=== PATIENT | male | born 1935 | race Caucasian/White ===

== ENCOUNTER 2016-09-30 13:00 | Inpatient (IN) | payer MEDICARE, OTHER ==
[2016-09-30] MEDS: Insulin Aspart 100 Units/ML 3 ML Pen SUBCUT SCH ×8 (11:40→22:10)
[2016-09-30] MEDS: Insulin Detemir 100 Units/ML 3 ML Pen SUBCUT SCH ×2 (11:42→21:12)
--- NOTE | 2016-09-30 15:40 | PCM.HP ---
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 PT now admitted to Swing bed for ongoing PT/OT needs. pt state that for the most part his post op went well. He did note that he had an adverse reaction to the hydrocodone and required a sitter but is tolerating the ultram well. states no cp, n/v. or sob. notes his knee pain is more intense currently s/p the trip here. pain is constant but worse iwth movement. pain meds / elevation and rest do help. pt reports urinary retention- has tobias in place- states had similar retention problem after back surgery and required tobias for 2-3 weeks. historically has constipation issues- last BM tho was yesterdy, 09/29/16 Right Knee Pain Score (Numeric/FACES): 7 - Related Data Allergies/Adverse Reactions: Allergies Allergy/AdvReac Type Severity Reaction Status Date / Time No Known Allergies Allergy Verified 02/06/14 19:17 Home Medications: Home Meds Aspirin [Adult Low Dose Aspirin EC] 81 mg PO DAILY 02/06/14 [History] Gabapentin 800 mg PO BID 02/06/14 [History] Hydrochlorothiazide 25 mg PO DAILY 02/06/14 [History] Insulin Glarg,Human.Rec.Analog [Lantus Solostar] 68 unit SUBCUT BEDTIME [History] Latanoprost [Xalatan 0.005% Ophth Soln] 1 drop EYEBOTH BEDTIME 02/06/14 [History ] Levothyroxine Sodium 112 mcg PO DAILY 02/06/14 [History] Losartan [Cozaar] 50 mg PO DAILY 02/06/14 [History] Rosuvastatin Calcium [Crestor] 10 mg PO BEDTIME 02/06/14 [History] Zolpidem [Ambien] 5 mg PO BEDTIME PRN 02/06/14 [History] Lutein/Minerals/Vit A,C & E [I-Silvana] 1 each PO DAILY 05/16/15 [History] Acetaminophen/HYDROcodone [[place] 325-5 MG] 1 tab PO Q8HR 09/29/16 [History] Insulin Lispro [Humalog] 37 unit SQ TID 09/29/16 [History] rOPINIRole [Requip] 3 mg PO BEDTIME 09/29/16 [History] Past Medical History HEENT History: Reports: Cataract Cardiovascular History: Reports: High cholesterol, Hypertension Other Cardiovascular History: Sinus inversus totalus Respiratory History: Reports: Other (see below) Other Respiratory History: Partial left lung removal 50 years ago Genitourinary History: Reports: BPH, Other (see below) Other Genitourinary History: 09/30/16 urinary retention, tobias cath present on admit Musculoskeletal History: Reports: Other (see below) Other Musculoskeletal History: spinal fusion lumbar area Endocrine/Metabolic History: Reports: Diabetes, type II, Hypothyroidism Hematologic History: Reports: Blood transfusion(s) Other Dermatologic History: ??Basal Cell Carcinoma removal within last 6 months - Past Surgical History HEENT Surgical History: Reports: Cataract surgery Cardiovascular Surgical History: Reports: None Respiratory Surgical History: Reports: Pneumonectomy Other Neurological Surgeries/Procedures: january 2014 laminectomy Musculoskeletal Surgical History: Reports: Knee replacement Other Musculoskeletal Surgeries/Procedures:: R knee replaced 09/27/16 Social & Family History - Family History Family Medical History: Noncontributory Neurological: Reports: Other (see below) (father had encephalitisj- in his early 50s) Other Family History: mother of old age at 93 - Tobacco Use Smoking Status *Q: Never Smoker Second Hand Smoke Exposure: No - Caffeine Use Caffeine Use: Reports: Coffee - Alcohol Use Days Per Week of Alcohol Use: 0 - Recreational Drug Use Recreational Drug Use: No H&P Review of Systems - Review of Systems: Review Of Systems: See Below General: Reports: weakness (surgical ) HEENT: Reports: glasses Pulmonary: Reports: No Symptoms Cardiovascular: Reports: no symptoms Gastrointestinal: Reports: Constipation Genitourinary: Reports: retention (has tobias ) Musculoskeletal: Reports: leg pain (surgical - rght lg/knee ) Skin: Reports: no symptoms Psychiatric: Reports: confusion (was confused with hydrocondone ) Neurological: Reports: No Symptoms Exam - Exam Exam: See Below - Vital Signs Weight: 103.873 kg - Exam General: alert, oriented, cooperative HEENT: Conjunctiva clear Lungs: Clear to auscultation, Normal respiratory effort Cardiovascular: regular rate, regular rhythm Abdomen: normal bowel sounds, soft Extremities: edema (trace- PETAR hose in place ) Skin: warm Neuro Extensive - Mental Status: alert, oriented x3, normal mood/affect, normal cognition Psychiatric: alert, normal affect, normal mood - Patient Data Lab Results last 24 hrs: 09/29/16 - hgb 11.4 and creatinine 0.9 - from [place] d/c papers *Q Meaningful Use (ADM) - VTE *Q VTE Criteria *Q: - Stroke *Q Stroke Criteria *Q: - AMI *Q AMI Criteria *Q: - Problem List (1) Knee joint replacement status SNOMED Code(s): 1470863739517, 131420864, 5202114876357 ICD Code: Z96.659 - PRESENCE OF UNSPECIFIED ARTIFICIAL KNEE JOINT Status: Acute Current Visit: Yes Qualifiers: Laterality: right Qualified Code(s): Z96.651 - Presence of right artificial knee joint Problem List Initiated/Reviewed/Updated: Yes Orders Last 24hrs: Active Orders 24 hr Category Date Time Status Patient Status [ADT] Routine ADT 09/30/16 13:00 Active Blood Glucose Check, Bedside [RC] WITHMEALSANDBED Care 09/29/16 15:25 Active Oxygen Therapy [RC] PRN Care 09/29/16 15:25 Active Pulse Oximetry [RC] PRN Care 09/29/16 15:26 Active Up With Assistance [RC] ASDIRECTED Care 09/29/16 15:25 Active VTE/DVT Education [RC] PER UNIT ROUTINE Care 09/29/16 15:25 Active Vital Signs [RC] QSHIFT Care 09/29/16 15:25 Active OT Evaluation and Treatment [CONS] Routine Cons 09/30/16 14:51 Active PT Evaluation and Treatment [CONS] Routine Cons 09/30/16 14:51 Active Consistent Carbohydrate Diet [DIET] Diet 09/30/16 Lunch Active Acetaminophen [Tylenol] Med 09/30/16 14:50 Ordered 325 mg PO Q4H PRN Insulin Aspart [NovoLOG] Med 09/29/16 17:00 Active 37 unit SUBCUT TIDAC Insulin Aspart [NovoLOG] Med 09/29/16 18:00 Active See Protocol SUBCUT WITHMEALSANDBED Insulin Detemir [Levemir] Med 09/29/16 21:00 Active 68 unit SUBCUT BEDTIME traMADol [Ultram] Med 09/30/16 14:49 Ordered 50 mg PO Q4H PRN Resuscitation Status Routine Resus Stat 09/29/16 15:25 Ordered Medication Orders Acetaminophen (Tylenol) 325 mg PO Q4H PRN PRN Reason: Pain Insulin Aspart (Novolog) 0 unit SUBCUT WITHMEALSANDBED [facility] PRN Reason: Protocol Last Admin: 09/30/16 14:14 Dose: Admin: 09/30/16 11:42 Dose: Admin: 09/30/16 11:42 Dose: Admin: 09/30/16 11:41 Dose: Insulin Aspart (Novolog) 37 unit SUBCUT TIDAC [facility] Last Admin: 09/30/16 11:41 Dose: Admin: 09/30/16 11:41 Dose: Admin: 09/30/16 11:40 Dose: Insulin Detemir (Levemir) 68 unit SUBCUT BEDTIME [facility] Last Admin: 09/30/16 11:42 Dose: Not Given Tramadol HCl (Ultram) 50 mg PO Q4H PRN PRN Reason: Pain (moderate 4-6) Assessment/Plan Comment:: s/p right TKA -completed 09/27/16 - by DR. Jeffrey Anderson -follow dressing orders per ortho -weight bearing as tolerated -consult PT/OT -tylenol/ultram PRN for pain Urinary retention -per d/c report - will d/c tobias tomorrow- monitor for retention-if re-ccurs then leave tobias in until seen by urology DM -will resume home regimen -POC meals/bed with SSI PRN constipation -will add sennakot at HS chronic diagnosis- HTN, hypothyroid, gluacoma, RLS, chronic back pain, - these are stable and will resume home regimen full code lovenox DVt PPX
[2016-09-30] MEDS: traMADol 50 MG Tab PO PRN ×2 (15:46→21:17)
[2016-09-30] MEDS: Acetaminophen 325 MG Tab PO PRN (15:47)
[2016-09-30] MEDS ORDERED: Acetaminophen 325 MG Tab PO PRN (16:34)
[2016-09-30] MEDS ORDERED: Latanoprost 0.005% Ophth Soln 2.5 ML Bottle EYEBOTH SCH (21:00)
[2016-09-30] MEDS ORDERED: INSULIN LISPRO SQ SCH (21:00)
[2016-09-30] MEDS: Gabapentin 400 MG Cap PO SCH (21:08)
[2016-09-30] MEDS: Rosuvastatin 10 MG Tab PO SCH (21:09)
[2016-09-30] MEDS: Latanoprost 0.005% Ophth Soln **OWN MED EYEBOTH SCH (21:14)
[2016-10-01] MEDS: Levothyroxine 112 MCG Tab PO SCH (06:27)
[2016-10-01] MEDS: Ferrous Sulfate 325 MG Tab PO SCH (08:52)
[2016-10-01] MEDS: Hydrochlorothiazide 25 MG Tab PO SCH (08:52)
[2016-10-01] MEDS: Gabapentin 400 MG Cap PO SCH ×2 (08:53→21:40)
[2016-10-01] MEDS: Aspirin 81 MG Tab.EC PO SCH (08:53)
[2016-10-01] MEDS: Lutein/Minerals/Vit A,C & E Tab PO SCH (08:53)
[2016-10-01] MEDS: traMADol 50 MG Tab PO PRN ×2 (08:54→21:40)
[2016-10-01] MEDS: Acetaminophen 325 MG Tab PO PRN (08:55)
[2016-10-01] MEDS: Losartan 50 MG Tab PO SCH (08:58)
[2016-10-01] MEDS: Enoxaparin 30 MG/0.3 ML Syringe SUBCUT SCH (09:00)
[2016-10-01] MEDS: Insulin Aspart 100 Units/ML 3 ML Pen SUBCUT SCH ×7 (09:03→21:42)
--- NOTE | 2016-10-01 15:45 | PCM.SN ---
- Free Text/Narrative Note: patient was found to have temperature of 101.7 Fahrenheit this morning. However patient was not having any symptoms. I suspect and I asked him if he has any symptoms he declined but reported some lower abdomen pressure which he thinks from the Tobias catheter. He denies feeling warm or cold, having headache, sinus congestion, sore throat, ear pain, shortness breath, cough, wheezing, nausea, vomiting, abdomen pain, flank pain,diarrhea, rash, focal weakness, numbness, tingling, or any other symptoms. He states that his right leg does not look more swelling than usual and his pain has been as before. Objectives heart rate 81, blood pressure 138/62, respiratory 18, sat 92% room air, temperature this afternoon 57.2 Celsius Gen.: Alert, oriented X3, not in distress HEENT: Normal Neck: Supple, no JVD respiratory: Normal chest motion, normal effort, good air exchange, no wheezing , no rhonchi, no rales, no crackles Cardiovascular: Heart sounds are heard on the right, regular rate and rhythm, normal sounds Abdomen: Soft, nondistended, nontender, No guarding or rebound,CVA nontender bilaterally extremities: Right lower leg has some swelling which is appropriate for post knee surgery. The right knee looks appropriate for post surgical exam. No signs of infection in incision or skin around incision neurological exam: Normal, no focal deficit Skin: No rash Assessment/plan Fever The room was warm at the time and patient did not feel feverish Patient received Tylenol I informed the nurses not to get Tylenol anymore without counseling was physician we'll continue to check his temperature every 4 hours and as needed We will do urinalysis His temperature is elevated again we will do father workup and s/p right TKA -completed 09/27/16 - by DR. Jeffrey Anderson -follow dressing orders per ortho -weight bearing as tolerated -consult PT/OT -ultram PRN for pain Urinary retention -per d/c report - will d/c tobias today- monitor for retention-if re-ccurs then leave tobias in until seen by urology DM -continue home regimen -POC meals/bed with SSI PRN constipation -sennakot at HS chronic diagnosis- HTN, hypothyroid, gluacoma, RLS, chronic back pain, - these are stable and will resume home regimen full code lovenox DVt PPX
[2016-10-01] MEDS ORDERED: cefTRIAXone 1 GM Vial IVPUSH SCH (20:00)
[2016-10-01] MEDS: cefTRIAXone 1 GM in Sodium Chloride 0.9% 50 ML IV SCH (21:39)
[2016-10-01] MEDS: Tamsulosin 0.4 MG Cap.ER PO SCH (21:40)
[2016-10-01] MEDS: Rosuvastatin 10 MG Tab PO SCH (21:41)
[2016-10-01] MEDS: Insulin Detemir 100 Units/ML 3 ML Pen SUBCUT SCH (21:43)
[2016-10-01] MEDS: Latanoprost 0.005% Ophth Soln **OWN MED EYEBOTH SCH (21:47)
[2016-10-02] MEDS: Levothyroxine 112 MCG Tab PO SCH (05:55)
[2016-10-02] MEDS ORDERED: Levothyroxine 112 MCG Tab PO SCH (06:00)
[2016-10-02] MEDS: Insulin Aspart 100 Units/ML 3 ML Pen SUBCUT SCH ×7 (08:01→21:39)
[2016-10-02] MEDS: Gabapentin 400 MG Cap PO SCH ×2 (10:05→21:33)
[2016-10-02] MEDS: Ferrous Sulfate 325 MG Tab PO SCH (10:05)
[2016-10-02] MEDS: Hydrochlorothiazide 25 MG Tab PO SCH (10:05)
[2016-10-02] MEDS: Aspirin 81 MG Tab.EC PO SCH (10:05)
[2016-10-02] MEDS: Lutein/Minerals/Vit A,C & E Tab PO SCH (10:05)
[2016-10-02] MEDS: Enoxaparin 30 MG/0.3 ML Syringe SUBCUT SCH (10:06)
[2016-10-02] MEDS: traMADol 50 MG Tab PO PRN ×2 (10:46→21:33)
[2016-10-02] MEDS: Losartan 50 MG Tab PO SCH (10:52)
[2016-10-02] MEDS: cefTRIAXone 1 GM in Sodium Chloride 0.9% 50 ML IV SCH (20:12)
[2016-10-02] MEDS: Rosuvastatin 10 MG Tab PO SCH (21:32)
[2016-10-02] MEDS: Tamsulosin 0.4 MG Cap.ER PO SCH (21:33)
[2016-10-02] MEDS: Latanoprost 0.005% Ophth Soln **OWN MED EYEBOTH SCH (21:35)
[2016-10-02] MEDS: Insulin Detemir 100 Units/ML 3 ML Pen SUBCUT SCH (21:40)
[2016-10-03] MEDS: Levothyroxine 112 MCG Tab PO SCH (05:52)
[2016-10-03] MEDS: Insulin Aspart 100 Units/ML 3 ML Pen SUBCUT SCH ×7 (08:22→20:59)
[2016-10-03] MEDS: traMADol 50 MG Tab PO PRN ×2 (10:25→20:56)
[2016-10-03] MEDS: Enoxaparin 30 MG/0.3 ML Syringe SUBCUT SCH (10:26)
[2016-10-03] MEDS: Lutein/Minerals/Vit A,C & E Tab PO SCH (10:27)
[2016-10-03] MEDS: Gabapentin 400 MG Cap PO SCH ×2 (10:27→20:57)
[2016-10-03] MEDS: Hydrochlorothiazide 25 MG Tab PO SCH (10:27)
[2016-10-03] MEDS: Ferrous Sulfate 325 MG Tab PO SCH (10:27)
[2016-10-03] MEDS: Losartan 50 MG Tab PO SCH (10:28)
[2016-10-03] MEDS: Aspirin 81 MG Tab.EC PO SCH (10:28)
[2016-10-03] MEDS: cefTRIAXone 1 GM in Sodium Chloride 0.9% 50 ML IV SCH (20:05)
[2016-10-03] MEDS: Rosuvastatin 10 MG Tab PO SCH (20:58)
[2016-10-03] MEDS: Tamsulosin 0.4 MG Cap.ER PO SCH (20:58)
[2016-10-03] MEDS: Insulin Detemir 100 Units/ML 3 ML Pen SUBCUT SCH (21:07)
[2016-10-03] MEDS: Latanoprost 0.005% Ophth Soln **OWN MED EYEBOTH SCH (21:07)
[2016-10-04] MEDS: Levothyroxine 112 MCG Tab PO SCH (05:24)
[2016-10-04] MEDS: traMADol 50 MG Tab PO PRN ×2 (07:29→20:02)
[2016-10-04] MEDS: Ferrous Sulfate 325 MG Tab PO SCH (08:14)
[2016-10-04] MEDS: Hydrochlorothiazide 25 MG Tab PO SCH (08:14)
[2016-10-04] MEDS: Gabapentin 400 MG Cap PO SCH ×2 (08:14→20:35)
[2016-10-04] MEDS: Lutein/Minerals/Vit A,C & E Tab PO SCH (08:14)
[2016-10-04] MEDS: Enoxaparin 30 MG/0.3 ML Syringe SUBCUT SCH (08:15)
[2016-10-04] MEDS: Aspirin 81 MG Tab.EC PO SCH (08:15)
[2016-10-04] MEDS: Insulin Aspart 100 Units/ML 3 ML Pen SUBCUT SCH ×8 (08:15→22:11)
[2016-10-04] MEDS: Losartan 50 MG Tab PO SCH (08:15)
[2016-10-04] MEDS: cefTRIAXone 1 GM in Sodium Chloride 0.9% 50 ML IV SCH (19:50)
[2016-10-04] MEDS: Rosuvastatin 10 MG Tab PO SCH (20:33)
[2016-10-04] MEDS: Tamsulosin 0.4 MG Cap.ER PO SCH (20:34)
[2016-10-04] MEDS: Insulin Detemir 100 Units/ML 3 ML Pen SUBCUT SCH (22:09)
[2016-10-04] MEDS: Latanoprost 0.005% Ophth Soln **OWN MED EYEBOTH SCH (22:12)
[2016-10-04] MEDS: Acetaminophen 325 MG Tab PO PRN (22:13)
[2016-10-05] MEDS: traMADol 50 MG Tab PO PRN ×3 (00:57→22:05)
[2016-10-05] MEDS: Levothyroxine 112 MCG Tab PO SCH (05:52)
[2016-10-05] MEDS: Ferrous Sulfate 325 MG Tab PO SCH (08:35)
[2016-10-05] MEDS: Insulin Aspart 100 Units/ML 3 ML Pen SUBCUT SCH ×7 (08:35→22:14)
[2016-10-05] MEDS: Losartan 50 MG Tab PO SCH (08:36)
[2016-10-05] MEDS: Aspirin 81 MG Tab.EC PO SCH (08:37)
[2016-10-05] MEDS: Lutein/Minerals/Vit A,C & E Tab PO SCH (08:37)
[2016-10-05] MEDS: Hydrochlorothiazide 25 MG Tab PO SCH (08:37)
[2016-10-05] MEDS: Enoxaparin 30 MG/0.3 ML Syringe SUBCUT SCH (08:37)
[2016-10-05] MEDS: Gabapentin 400 MG Cap PO SCH ×2 (08:37→22:05)
[2016-10-05] MEDS: cefTRIAXone 1 GM in Sodium Chloride 0.9% 50 ML IV SCH (19:54)
[2016-10-05] MEDS: Rosuvastatin 10 MG Tab PO SCH (22:06)
[2016-10-05] MEDS: Insulin Detemir 100 Units/ML 3 ML Pen SUBCUT SCH (22:07)
[2016-10-05] MEDS: Tamsulosin 0.4 MG Cap.ER PO SCH (22:13)
[2016-10-05] MEDS: Latanoprost 0.005% Ophth Soln **OWN MED EYEBOTH SCH (22:16)
[2016-10-05] MEDS: Acetaminophen 325 MG Tab PO PRN (23:35)
[2016-10-06] MEDS: Levothyroxine 112 MCG Tab PO SCH (05:47)
[2016-10-06] MEDS: traMADol 50 MG Tab PO PRN ×2 (05:51→21:02)
[2016-10-06] MEDS: Insulin Aspart 100 Units/ML 3 ML Pen SUBCUT SCH ×7 (08:08→22:45)
[2016-10-06] MEDS: Enoxaparin 30 MG/0.3 ML Syringe SUBCUT SCH (08:26)
[2016-10-06] MEDS: Ferrous Sulfate 325 MG Tab PO SCH (08:30)
[2016-10-06] MEDS: Losartan 50 MG Tab PO SCH (08:31)
[2016-10-06] MEDS: Hydrochlorothiazide 25 MG Tab PO SCH (08:32)
[2016-10-06] MEDS: Aspirin 81 MG Tab.EC PO SCH (08:32)
[2016-10-06] MEDS: Lutein/Minerals/Vit A,C & E Tab PO SCH (08:32)
[2016-10-06] MEDS: Gabapentin 400 MG Cap PO SCH ×2 (08:33→21:00)
[2016-10-06] MEDS ORDERED: Magnesium Hydroxide 400 MG/5 ML Susp 30 ML Cup PO PRN (10:35)
[2016-10-06] MEDS: cefTRIAXone 1 GM in Sodium Chloride 0.9% 50 ML IV SCH (20:44)
[2016-10-06] MEDS: Tamsulosin 0.4 MG Cap.ER PO SCH (21:00)
[2016-10-06] MEDS: Rosuvastatin 10 MG Tab PO SCH (21:01)
[2016-10-06] MEDS: Latanoprost 0.005% Ophth Soln **OWN MED EYEBOTH SCH (21:06)
[2016-10-06] MEDS: Acetaminophen 325 MG Tab PO PRN (22:40)
[2016-10-06] MEDS: Insulin Detemir 100 Units/ML 3 ML Pen SUBCUT SCH (22:43)
[2016-10-07] MEDS: Levothyroxine 112 MCG Tab PO SCH (06:11)
[2016-10-07] MEDS: Enoxaparin 30 MG/0.3 ML Syringe SUBCUT SCH (08:37)
[2016-10-07] MEDS: Insulin Aspart 100 Units/ML 3 ML Pen SUBCUT SCH ×7 (08:38→21:55)
[2016-10-07] MEDS: Lutein/Minerals/Vit A,C & E Tab PO SCH (08:40)
[2016-10-07] MEDS: Aspirin 81 MG Tab.EC PO SCH (08:40)
[2016-10-07] MEDS: Losartan 50 MG Tab PO SCH (08:40)
[2016-10-07] MEDS: Ferrous Sulfate 325 MG Tab PO SCH (08:41)
[2016-10-07] MEDS: Hydrochlorothiazide 25 MG Tab PO SCH (08:41)
[2016-10-07] MEDS: Gabapentin 400 MG Cap PO SCH ×2 (08:41→20:29)
[2016-10-07] MEDS: traMADol 50 MG Tab PO PRN ×3 (09:59→21:38)
[2016-10-07] MEDS: Tamsulosin 0.4 MG Cap.ER PO SCH (20:28)
[2016-10-07] MEDS: cefTRIAXone 1 GM in Sodium Chloride 0.9% 50 ML IV SCH (20:28)
[2016-10-07] MEDS: Rosuvastatin 10 MG Tab PO SCH (20:32)
[2016-10-07] MEDS: Latanoprost 0.005% Ophth Soln **OWN MED EYEBOTH SCH (21:40)
[2016-10-07] MEDS: Insulin Detemir 100 Units/ML 3 ML Pen SUBCUT SCH (21:51)
[2016-10-08] MEDS: traMADol 50 MG Tab PO PRN ×3 (02:38→23:03)
[2016-10-08] MEDS: Levothyroxine 112 MCG Tab PO SCH (06:08)
[2016-10-08] MEDS: Gabapentin 400 MG Cap PO SCH ×2 (09:05→21:43)
[2016-10-08] MEDS: Losartan 50 MG Tab PO SCH (09:05)
[2016-10-08] MEDS: Insulin Aspart 100 Units/ML 3 ML Pen SUBCUT SCH ×7 (09:06→21:45)
[2016-10-08] MEDS: Aspirin 81 MG Tab.EC PO SCH (09:07)
[2016-10-08] MEDS: Lutein/Minerals/Vit A,C & E Tab PO SCH (09:07)
[2016-10-08] MEDS: Hydrochlorothiazide 25 MG Tab PO SCH (09:07)
[2016-10-08] MEDS: Ferrous Sulfate 325 MG Tab PO SCH (09:08)
[2016-10-08] MEDS: Enoxaparin 30 MG/0.3 ML Syringe SUBCUT SCH (09:08)
[2016-10-08] MEDS: Acetaminophen 325 MG Tab PO PRN (10:26)
[2016-10-08] MEDS ORDERED: Menthol/Methyl Salicylate 85 GM Tube TOP PRN (10:50)
[2016-10-08] MEDS: cefTRIAXone 1 GM in Sodium Chloride 0.9% 50 ML IV SCH (20:18)
[2016-10-08] MEDS: Rosuvastatin 10 MG Tab PO SCH (21:42)
[2016-10-08] MEDS: Tamsulosin 0.4 MG Cap.ER PO SCH (21:43)
[2016-10-08] MEDS: Insulin Detemir 100 Units/ML 3 ML Pen SUBCUT SCH (21:46)
[2016-10-08] MEDS: Latanoprost 0.005% Ophth Soln **OWN MED EYEBOTH SCH (21:47)
[2016-10-09] MEDS: Levothyroxine 112 MCG Tab PO SCH (05:50)
[2016-10-09] MEDS: Insulin Aspart 100 Units/ML 3 ML Pen SUBCUT SCH ×7 (08:53→21:29)
[2016-10-09] MEDS: Acetaminophen 325 MG Tab PO PRN (08:56)
[2016-10-09] MEDS: Enoxaparin 30 MG/0.3 ML Syringe SUBCUT SCH (08:57)
[2016-10-09] MEDS: Losartan 50 MG Tab PO SCH (08:58)
[2016-10-09] MEDS: Gabapentin 400 MG Cap PO SCH ×2 (08:58→21:29)
[2016-10-09] MEDS: Aspirin 81 MG Tab.EC PO SCH (09:00)
[2016-10-09] MEDS: Ferrous Sulfate 325 MG Tab PO SCH (09:00)
[2016-10-09] MEDS: Hydrochlorothiazide 25 MG Tab PO SCH (09:00)
[2016-10-09] MEDS: Lutein/Minerals/Vit A,C & E Tab PO SCH (09:01)
[2016-10-09] MEDS: Rosuvastatin 10 MG Tab PO SCH (21:28)
[2016-10-09] MEDS: Tamsulosin 0.4 MG Cap.ER PO SCH (21:28)
[2016-10-09] MEDS: Insulin Detemir 100 Units/ML 3 ML Pen SUBCUT SCH (21:30)
[2016-10-09] MEDS: Latanoprost 0.005% Ophth Soln **OWN MED EYEBOTH SCH (21:48)
[2016-10-09] MEDS: traMADol 50 MG Tab PO PRN (22:36)
[2016-10-10] MEDS: Acetaminophen 325 MG Tab PO PRN ×3 (04:19→22:39)
[2016-10-10] MEDS: Levothyroxine 112 MCG Tab PO SCH (06:02)
[2016-10-10] MEDS: traMADol 50 MG Tab PO PRN ×2 (06:09→20:25)
[2016-10-10] MEDS: Insulin Aspart 100 Units/ML 3 ML Pen SUBCUT SCH ×7 (09:08→22:04)
[2016-10-10] MEDS: Enoxaparin 30 MG/0.3 ML Syringe SUBCUT SCH (10:24)
[2016-10-10] MEDS: Gabapentin 400 MG Cap PO SCH ×2 (10:25→20:24)
[2016-10-10] MEDS: Hydrochlorothiazide 25 MG Tab PO SCH (10:26)
[2016-10-10] MEDS: Aspirin 81 MG Tab.EC PO SCH (10:27)
[2016-10-10] MEDS: Lutein/Minerals/Vit A,C & E Tab PO SCH (10:27)
[2016-10-10] MEDS: Losartan 50 MG Tab PO SCH (10:28)
[2016-10-10] MEDS: Ferrous Sulfate 325 MG Tab PO SCH (10:33)
[2016-10-10] MEDS: Latanoprost 0.005% Ophth Soln **OWN MED EYEBOTH SCH (20:23)
[2016-10-10] MEDS: Rosuvastatin 10 MG Tab PO SCH (20:24)
[2016-10-10] MEDS: Tamsulosin 0.4 MG Cap.ER PO SCH (20:25)
[2016-10-10] MEDS: Insulin Detemir 100 Units/ML 3 ML Pen SUBCUT SCH (21:04)
[2016-10-11] MEDS: traMADol 50 MG Tab PO PRN ×3 (00:29→20:53)
[2016-10-11] MEDS: Levothyroxine 112 MCG Tab PO SCH (05:45)
[2016-10-11] MEDS: Insulin Aspart 100 Units/ML 3 ML Pen SUBCUT SCH ×7 (08:15→21:06)
[2016-10-11] MEDS: Ferrous Sulfate 325 MG Tab PO SCH (08:21)
[2016-10-11] MEDS: Losartan 50 MG Tab PO SCH (08:21)
[2016-10-11] MEDS: Aspirin 81 MG Tab.EC PO SCH (08:22)
[2016-10-11] MEDS: Lutein/Minerals/Vit A,C & E Tab PO SCH (08:22)
[2016-10-11] MEDS: Hydrochlorothiazide 25 MG Tab PO SCH (08:22)
[2016-10-11] MEDS: Enoxaparin 30 MG/0.3 ML Syringe SUBCUT SCH (08:23)
[2016-10-11] MEDS: Gabapentin 400 MG Cap PO SCH ×2 (08:23→20:56)
[2016-10-11] MEDS ORDERED: Insulin Detemir 100 Units/ML 3 ML Pen SUBCUT SCH (09:07)
--- NOTE | 2016-10-11 12:56 | PN ---
DATE: 10/11/2016 SUBJECTIVE: Mr. Primitivo Murphy was admitted to the swing bed status post right total knee replacement performed on the 09/27/2016. Today, the patient offers no new complaints. He was found to be hypoglycemic. His blood sugar usually drops in the evenings- was down to 49. The patient usually does not have symptoms with these. Denies fever, chills, rigors at this time. No nausea. No vomiting. His oral intake has been poor. REVIEW OF SYSTEMS: Respiratory, constitutional, cardiac, gastrointestinal, genitourinary were reviewed. No other pertinent findings except as noted above. OBJECTIVE: General: The patient is alert, oriented to place, time, and person. Head: Atraumatic and normocephalic. Ear, Nose, and Throat: Unremarkable. Neck: Supple. Chest: Diminished breath sounds bilaterally. CVS: Regular rate and rhythm. Abdomen: Soft, nontender. Extremities: No pedal edema. No finger clubbing. Skin: No rash. ASSESSMENT: 1. Recurrent hypoglycemia. The patient is a known diabetic. He is on high dose of insulin. We will go ahead and reduce insulin Levemir to 60 units nightly. Reduce insulin NovoLog to 30 units with meals. Monitor blood sugar before meals and at bedtime. Hypoglycemia protocol. 2. Status post right total knee arthroplasty. The patient seemed to be ambulating well. 3. Urinary retention. Hunter catheter has been discontinued. No evidence of recurrent urinary retention. No urinary tract infection. [facility] /[id number] [facility] CENTERFrancisco
[2016-10-11] MEDS: Latanoprost 0.005% Ophth Soln **OWN MED EYEBOTH SCH (20:54)
[2016-10-11] MEDS: Rosuvastatin 10 MG Tab PO SCH (20:56)
[2016-10-11] MEDS: Tamsulosin 0.4 MG Cap.ER PO SCH (20:57)
[2016-10-12] MEDS: Levothyroxine 112 MCG Tab PO SCH (06:02)
[2016-10-12] MEDS: Insulin Aspart 100 Units/ML 3 ML Pen SUBCUT SCH ×4 (09:13→12:26)
[2016-10-12] MEDS: Ferrous Sulfate 325 MG Tab PO SCH (09:23)
[2016-10-12] MEDS: Losartan 50 MG Tab PO SCH (09:23)
[2016-10-12] MEDS: Aspirin 81 MG Tab.EC PO SCH (09:23)
[2016-10-12] MEDS: Hydrochlorothiazide 25 MG Tab PO SCH (09:23)
[2016-10-12] MEDS: Lutein/Minerals/Vit A,C & E Tab PO SCH (09:24)
[2016-10-12] MEDS: Enoxaparin 30 MG/0.3 ML Syringe SUBCUT SCH (09:24)
[2016-10-12] MEDS: Gabapentin 400 MG Cap PO SCH (09:24)
[2016-10-12 09:26] VITALS: BP 125/65
--- NOTE | 2016-10-13 03:25 | DISCH ---
FINAL DIAGNOSES: 1. Status post right total knee arthroplasty. 2. Urinary retention. 3. Recurrent hypoglycemia. 4. Diabetes mellitus, insulin requiring. 5. Hypothyroidism. 6. Osteoarthritis. 7. Hypertension. SUMMARY OF HOSPITAL COURSE: Mr. Primitivo Murphy underwent right total knee arthroplasty in [place] on the September,. Subsequently, he was admitted to the swing bed and started on physical and occupational therapy. He did have urinary retention, but that improved. The patient was started on Flomax. His blood sugar was poorly controlled. He was having frequent hypoglycemia, hence we cut down his use of Levemir at night and 30 units of NovoLog with meals. Blood sugar has improved. The patient is feeling better and will be discharged home. PHYSICAL EXAMINATION: General: At discharge, the patient is alert, oriented to place, time, and person. Head: Atraumatic and normocephalic. Ear, Nose, and Throat: Unremarkable. Neck: Supple. Chest: Clear to auscultation. CVS: Regular rate and rhythm. No S3 or S4. Abdomen: Soft, nontender. Extremities: No pedal edema. No finger clubbing. [facility] /[id number]
== END 2016-10-12 16:49 | disposition home or self-care (01) | DRG 561 ==
LOC: DL.MS 13:00 → UNDOADMIN 14:35
PROVIDERS: ADMIT Internal Medicine; ATTEND Internal Medicine
DX: Z47.1 Aftercare following joint replacement surgery (principal); Z96.651 Presence of right artificial knee joint; Z98.890 Other specified postprocedural states; E11.649 Type 2 diabetes mellitus with hypoglycemia without coma; Z79.4 Long term (current) use of insulin; E03.9 Hypothyroidism, unspecified; M19.90 Unspecified osteoarthritis, unspecified site; I10 Essential (primary) hypertension; N40.1 Benign prostatic hyperplasia with lower urinary tract symptoms; R33.8 Other retention of urine; Z98.1 Arthrodesis status; M54.9 Dorsalgia, unspecified; G89.29 Other chronic pain; K59.00 Constipation, unspecified; Z79.82 Long term (current) use of aspirin; M48.06 Spinal stenosis, lumbar region; H40.9 Unspecified glaucoma
CPT/HCPCS: 81001; 82962; 87086; 87088; 87186; 97110-GO; 97110-GP; 97116-GP; 97161-GP; 97165-GO; 97530-GO; 97535-GO; A9270-GY; J0696; J1650; J1815-GY; J7050

== ENCOUNTER 2021-07-01 19:08 | Emergency (ER) | payer MEDICARE, OTHER ==
[2021-07-01 19:13] VITALS: BP 160/90; PULSE 60
--- NOTE | 2021-07-01 19:49 | EDM.PDOC ---
ED HPI GENERAL MEDICAL PROBLEM - General Chief Complaint: Diabetic Complaint Stated Complaint: AMBULANCE Time Seen by Provider: 07/01/21 19:40 Source of Information: Reports: Patient History Limitations: Reports: No Limitations - History of Present Illness INITIAL COMMENTS - FREE TEXT/NARRATIVE: This 86 yo male patient was brought to the ED by [facility] due to a low blood sugar level. The patient reports he was at home when he took his insulin. The patient did not eat after taking his insulin, because he was only going to go to the bank. After the bank, the patient went to [facility] then had several additional stops. The patient reports he started to notice his blood sugar was getting low so he pulled over and EMS was called. Upon arrival in the ED, the patient's blood sugar was 110 with a follow-up reading of 70. The patient was given some juice and crackers. Onset: Today Duration: Minutes: Quality: Reports: Other Severity: Mild Improves with: Reports: None Worsens with: Reports: None Context: Reports: Other Associated Symptoms: Reports: No Other Symptoms - Related Data Allergies Allergy/AdvReac Type Severity Reaction Status Date / Time No Known Allergies Allergy Unverified 07/01/21 19:09 Home Meds: Home Meds Aspirin [Adult Low Dose Aspirin EC] 81 mg PO DAILY 02/06/14 [History] Gabapentin 800 mg PO BID 02/06/14 [History] Hydrochlorothiazide 25 mg PO DAILY 02/06/14 [History] Latanoprost [Xalatan 0.005% Ophth Soln] 1 drop EYEBOTH BEDTIME 02/06/14 [History] Losartan [Cozaar] 50 mg PO DAILY 02/06/14 [History] Rosuvastatin Calcium [Crestor] 10 mg PO BEDTIME 02/06/14 [History] Lutein/Minerals/Vit A,C & E [I-Silvana] 1 each PO DAILY 05/16/15 [History] Acetaminophen 325 mg PO Q4HR PRN 09/30/16 [History] Ferrous Sulfate 325 mg PO DAILY 09/30/16 [History] Levothyroxine 112 mcg PO ACBREAKFAST 09/30/16 [History] Sennosides/Docusate Sodium [Senokot-S Tablet] 1 each PO BID 09/30/16 [History] Insulin Glarg,Human.Rec.Analog [LantUS] 60 unit SQ BEDTIME #1 pen 10/12/16 [Rx] Tamsulosin [Flomax] 0.4 mg PO BEDTIME #30 cap.er 10/12/16 [Rx] traMADol [Ultram] 50 mg PO Q4H PRN #40 tablet 10/12/16 [Rx] Insulin Lispro [HumaLOG] 40 unit SUBCUT TIDAC 07/01/21 [History] Past Medical History HEENT History: Reports: Cataract Cardiovascular History: Reports: High Cholesterol, Hypertension Other Cardiovascular History: Sinus inversus totalus Respiratory History: Reports: Other (See Below) Other Respiratory History: Partial left lung removal 50 years ago Genitourinary History: Reports: BPH, Other (See Below) Other Genitourinary History: 09/30/16 urinary retention, tobias cath present on admit Musculoskeletal History: Reports: Other (See Below) Other Musculoskeletal History: spinal fusion lumbar area Endocrine/Metabolic History: Reports: Diabetes, Type II, Hypothyroidism Hematologic History: Reports: Blood Transfusion(s) Other Dermatologic History: ??Basal Cell Carcinoma removal within last 6 months - Past Surgical History HEENT Surgical History: Reports: Cataract Surgery Cardiovascular Surgical History: Reports: None Respiratory Surgical History: Reports: Pneumonectomy Other Neurological Surgeries/Procedures: january 2014 laminectomy Musculoskeletal Surgical History: Reports: Knee Replacement Other Musculoskeletal Surgeries/Procedures:: R knee replaced 09/27/16 Social & Family History - Family History Family Medical History: No Pertinent Family History Neurological: Reports: Other (See Below) - Tobacco Use Tobacco Use Status *Q: Never Tobacco User Second Hand Smoke Exposure: No - Caffeine Use Caffeine Use: Reports: Coffee - Recreational Drug Use Recreational Drug Use: No ED ROS GENERAL - Review of Systems Review Of Systems: Comprehensive ROS is negative, except as noted in HPI. ED EXAM GENERAL NO PERIP PULSE - Physical Exam Exam: See Below Exam Limited By: No Limitations General Appearance: Alert, WD/WN, No Apparent Distress Eye Exam: Bilateral Eye: EOMI, Normal Inspection, PERRL Ears: Normal External Exam, Normal Canal, Hearing Grossly Normal, Normal TMs Nose: Normal Inspection, Normal Mucosa, No Blood Throat/Mouth: Normal Inspection, Normal Lips, Normal Teeth, Normal Gums, Normal Oropharynx, Normal Voice, No Airway Compromise Head: Atraumatic, Normocephalic Neck: Normal Inspection, Supple, Non-Tender, Full Range of Motion Respiratory/Chest: No Respiratory Distress, Lungs Clear, Normal Breath Sounds, No Accessory Muscle Use, Chest Non-Tender Cardiovascular: Normal Peripheral Pulses, Regular Rate, Rhythm, No Edema, No Gallop, No JVD, No Murmur, No Rub GI/Abdominal: Normal Bowel Sounds, Soft, Non-Tender, No Organomegaly, No Distention, No Abnormal Bruit, No Mass (Male) Exam: Deferred Rectal (Males) Exam: Deferred Back Exam: Normal Inspection, Full Range of Motion, NT Extremities: Normal Inspection, Normal Range of Motion, Non-Tender, Normal Capillary Refill, No Pedal Edema Neurological: Alert, Oriented, CN II-XII Intact, Normal Cognition, Normal Gait, Normal Reflexes, No Motor/Sensory Deficits Psychiatric: Normal Affect, Normal Mood Skin Exam: Warm, Dry, Intact, Normal Color, No Rash Lymphatic: No Adenopathy Course - Vital Signs Last Recorded V/S: Last Vital Signs Temp 97.3 F 07/01/21 19:12 Pulse 60 07/01/21 19:12 Resp 18 07/01/21 19:12 BP 160/90 H 07/01/21 19:12 Pulse Ox 95 07/01/21 19:12 - Re-Assessments/Exams Free Text/Narrative Re-Assessment/Exam: 07/01/21 19:57 Reassessment of the patient revealed that the patient was feeling much better and would like to be discharged. Departure - Departure Time of Disposition: 19:47 Disposition: Home, Self-Care 01 Condition: Fair Clinical Impression: Hypoglycemia - Discharge Information *PRESCRIPTION DRUG MONITORING PROGRAM REVIEWED*: Not Applicable *COPY OF PRESCRIPTION DRUG MONITORING REPORT IN PATIENT NAT: Not Applicable Instructions: Hypoglycemia, [id number] Forms: ED Department Discharge Care Plan Goals: The patient was advised of the examination and lab results (blood sugar levels) during the visit. The patient was encouraged to continue to monitor his blood sugar levels this evening and eat a decent meal. If the patient has any additional symptoms or concerns, the patient should either return to the emergency department or visit his primary care facility. Sepsis Event Note (ED) - Evaluation Sepsis Screening Result: No Definite Risk - Focused Exam Vital Signs: Vital Signs Temp Pulse Resp BP Pulse Ox 07/01/21 19:12 97.3 F 60 18 160/90 H 95
== END 2021-07-01 20:54 | disposition home or self-care (01) ==
LOC: DL.ED 19:08
DX: E11.649 Type 2 diabetes mellitus with hypoglycemia without coma (principal); E78.00 Pure hypercholesterolemia, unspecified; I10 Essential (primary) hypertension; E03.9 Hypothyroidism, unspecified; N40.0 Benign prostatic hyperplasia without lower urinary tract symptoms; Z79.82 Long term (current) use of aspirin; Z79.4 Long term (current) use of insulin; Z79.899 Other long term (current) drug therapy
CPT/HCPCS: 82947; 99285

== ENCOUNTER 2021-10-06 16:43 | Emergency (ER) | payer MEDICARE, OTHER ==
[~2021-10-06 16:43] MED LIST: Sodium Chloride 0.9% 10 ML Syringe FLUSH PRN
[2021-10-06 16:53] VITALS: BP 154/86; PULSE 81
[2021-10-06 17:44] LABS: ANION GAP 12.4 mEq/L (7-13); CHLORIDE,CL 100 mmol/L (98-107); SODIUM,NA 139 mmol/L (136-145)
[2021-10-06] MEDS ORDERED: Heparin Sodium 5,000 Units/ML Vial IVPUSH ONE (17:59)
[2021-10-06] MEDS ORDERED: Heparin Sodium/0.45% NaCl 25,000 UNITS/500 ML BAG IV SCH (18:00)
[2021-10-06] MEDS ORDERED: Aspirin 81 MG Tab.Chew PO ONE (18:01)
[2021-10-06 18:29] LABS: AMPHETAMINES,URINE NEGATIVE (NEGATIVE); BARBITURATES,URINE NEGATIVE (NEGATIVE); BENZODIAZEPINE,URINE NEGATIVE (NEGATIVE); MDMA (ECSTASY), URINE NEGATIVE (NEGATIVE); METHADONE,URINE NEGATIVE (NEGATIVE); METHAMPHETAMINES,URINE NEGATIVE (NEGATIVE); OPIATES,URINE NEGATIVE (NEGATIVE); OXYCODONE,URINE NEGATIVE (NEGATIVE); PHENCYCLIDINE,URINE NEGATIVE (NEGATIVE); TCA,URINE NEGATIVE (NEGATIVE)
== END 2021-10-06 19:12 ==
LOC: DL.ED 16:43
DX: I21.4 Non-ST elevation (NSTEMI) myocardial infarction (principal); E11.9 Type 2 diabetes mellitus without complications; E78.00 Pure hypercholesterolemia, unspecified; I10 Essential (primary) hypertension; E03.9 Hypothyroidism, unspecified; Z79.82 Long term (current) use of aspirin; Z79.899 Other long term (current) drug therapy; Z79.4 Long term (current) use of insulin
CPT/HCPCS: 36415; 70450; 71045; 80053; 80305-QW; 80307; 81001; 82140; 82947; 83605; 83735; 83880; 84443; 84484; 85025; 86140; 87040; 87077; 87086; 87088; 87186; 93005; 96365; 99285-25; A9270-GY; J1644; J3490